=== PATIENT | male | born 1980 ===

== ENCOUNTER 2019-12-19 06:58 | Day surgery (SDC) | payer BC ==
[~2019-12-19 06:58] MED LIST: ceFAZolin/STERILE WATER 2 GM/20 ML SYRINGE IV NR
[2019-12-19] MEDS ORDERED: LACTATED RINGERS 1,000 ML ONE (07:37)
[2019-12-19] MEDS ORDERED: ONDANSETRON 4 MG/2 ML INJ IV PRN (07:50)
[2019-12-19] MEDS ORDERED: HYDROmorphone 1 MG/1 ML INJ IV PRN ×2 (07:50)
[2019-12-19] MEDS ORDERED: ACETAMINOPHEN 500 MG TAB PO NR (07:52)
[2019-12-19] MEDS ORDERED: MAGNESIUM OXIDE 400 MG TAB PO NR (07:52)
--- NOTE | 2019-12-19 07:52 | Anesthesia Day of Surgery ---
Anesthesia Day of Surgery - Day of Surgery Patient Examined: Yes Patient H&P Reviewed: Yes Patient is NPO: Yes
--- NOTE | 2019-12-19 07:53 | Anesthesia Consultation ---
Anesthesia Consult and Med Hx Date of service: 12/19/19 - Airway Anesthetic Teeth Evaluation: Good ROM Head & Neck: Adequate Mental/Hyoid Distance: Adequate Mallampati Class: Class II Intubation Access Assessment: Good - Pre-Operative Health Status ASA Pre-Surgery Classification: ASA1 Proposed Anesthetic Plan: General - Pulmonary Hx Smoking: Yes (QUIT 03/2019) - Central Nervous System Hx Psychiatric Problems: No - Other Systems Hx Alcohol Use: Yes Hx Substance Use: No Hx Cancer: No
[2019-12-19] MEDS ORDERED: LACTATED RINGERS 1,000 ML IV SCH (08:00)
[2019-12-19] MEDS ORDERED: CELECOXIB 200 MG CAP PO NR (08:00)
[2019-12-19] MEDS ORDERED: HYDROmorphone 1 MG/1 ML INJ ONE (08:31)
[2019-12-19] MEDS ORDERED: propofoL 200 MG/20 ML VIAL IV ONE (08:32)
[2019-12-19] MEDS ORDERED: LIDOCAINE MPF (2%) 20 MG/1 ML VIAL 5 ML ONE (08:36)
[2019-12-19] MEDS ORDERED: MIDAZOLAM 2 MG/2 ML INJ ONE (08:36)
[2019-12-19] MEDS ORDERED: SODIUM CHLORIDE 0.9% IRR 1,500 ML BOTTLE IR ONE (09:10)
[2019-12-19] MEDS ORDERED: BUPIVACAINE/PF (0.25%) 2.5 MG/ML 10 ML VIAL INFILTRATI ONE ×2 (09:19→09:20)
[2019-12-19] MEDS ORDERED: KETOROLAC 30 MG/1 ML INJ ONE (09:34)
[2019-12-19] MEDS ORDERED: ONDANSETRON 4 MG/2 ML INJ ONE (09:35)
--- NOTE | 2019-12-19 09:40 | Short Stay Summary ---
Short Stay Documentation Date of service: 12/19/19 - History H&P: obtained from office - Allergies and Medications Current Medications: Allergies No Known Allergies Allergy (Verified 12/19/19 08:24) Home Medications Medication Instructions Recorded Confirmed Last Taken Type No Known Home Medications [No 12/13/19 12/19/19 Unknown History Reported Home Medications] Active Medications Acetaminophen (Tylenol) 1,000 mg PO ONCE NR Stop: 12/19/19 16:00 Last Admin: 12/19/19 08:10 Dose: 1,000 mg Documented by: Cefazolin Sodium (Ancef/Sterile Water 2 Gm/20 Ml) 2 gm IV PREOP NR Stop: 12/19/19 23:59 Celecoxib (Celebrex) 400 mg PO PREOP NR Stop: 12/19/19 12:00 Last Admin: 12/19/19 08:10 Dose: 400 mg Documented by: Hydromorphone HCl (Dilaudid) 0.25 mg IV Q10MIN PRN PRN Reason: Pain, Moderate (4-6) Stop: 12/19/19 23:00 Hydromorphone HCl (Dilaudid) 0.5 mg IV Q10MIN PRN PRN Reason: Pain , Severe (7-10) Stop: 12/19/19 23:00 Lactated Ringer's (Lactated Ringers) 1,000 mls @ 125 mls/hr IV DIRECT STEVEN Last Admin: 12/19/19 07:55 Dose: 125 mls/hr Documented by: Magnesium Oxide (Mag-Ox) 400 mg PO ONCE NR Stop: 12/19/19 13:00 Last Admin: 12/19/19 08:10 Dose: 400 mg Documented by: Ondansetron HCl (Zofran) 4 mg IV ONCE PRN PRN Reason: Nausea And Vomiting Stop: 12/19/19 16:00 - Brief post op/procedure progress note Date of procedure: 12/19/19 Pre-op diagnosis: phimosis Post-op diagnosis: same Procedure: circ Anesthesia: GETA Surgeon: DEAN WILSON Estimated blood loss: minimal Pathology: list (foreskin) Specimen disposition: to lab Condition: stable - Hospital course Hospital course: ultram & norco on chart - Disposition Condition at discharge: Stable Disposition: DC- TO HOME OR SELFCARE Short Stay Discharge Plan Follow up with: PRIMARY CARE, [Primary Care Provider] - 7 Days Forms: Outpatient Surgery DC Inst.
--- NOTE | 2019-12-19 10:01 | Post Anesthesia Evaluation ---
- Post Anesthesia Evaluation Patient Participated: Yes Airway Patent: Yes Stable Respiratory Function: Yes Nausea/Vomiting: No Temp > 96.8F: Yes Pain Manageable: Yes Adequeate Hydration: Yes Anesthesia Complications: No Block Receding Appropriately: Not Applicable Patient on Ventilator: No
[2019-12-19 11:07] VITALS: BP 120/78
--- NOTE | 2019-12-19 11:25 | Operative Report ---
PREOPERATIVE DIAGNOSIS: Phimosis. POSTOPERATIVE DIAGNOSIS: Phimosis. PROCEDURE: Circumcision. SURGEON: Jonatan Green MD ANESTHESIA: General. ESTIMATED BLOOD LOSS: Minimal. FLUIDS: Crystalloid. COMPLICATIONS: No complications. INDICATIONS: This 39-year-old gentleman seen in the office with persistent phimosis despite topical therapy. He has some cracking of his foreskin and difficulty to retract. Discussed options, written information was given. He agreed to proceed with surgical intervention. DESCRIPTION OF PROCEDURE: The patient was taken to the operative suite, placed in a supine position. After adequate general anesthesia, he was prepped and draped in a sterile fashion. Foreskin was marked at the level of the coronal ridge. Dorsal and ventral slit was made. Foreskin was circumferentially removed and sent for routine pathologic evaluation. Shaft skin was retracted. Adequate hemostasis was achieved. Proximal and distal shaft skin was reapproximated and closed with 2-0 chromic in an interrupted fashion. A 10 mL of 0.25% Marcaine was injected as a local at the base of the penis dorsally. Xeroform gauze followed by a net gauze and then Coban was placed on the penis. The patient tolerated the procedure well, was extubated and taken to recovery room. He will go home on [facility] and [place] and follow up in the office. He will remove his dressing in a couple of hours or hopefully overnight unless difficulty urinating. JOB# [id number] WALTER/KEVIN
== END 2019-12-19 11:05 | disposition home or self-care (01) ==
LOC: OR 06:58
PROVIDERS: ATTEND Urology
DX: N47.1 Phimosis (principal); Z87.891 Personal history of nicotine dependence; Z72.89 Other problems related to lifestyle; Z80.8 Family history of malignant neoplasm of other organs or systems; Z98.890 Other specified postprocedural states
CPT/HCPCS: 54161; 88304; J0690; J1170; J1885; J2250; J2405; J2704; J7120